=== PATIENT | female | born 1995 | race Caucasian/White ===

== ENCOUNTER → 2016-12-03 | Outpatient (CLI) | payer BC ==
--- NOTE | 2016-12-03 09:29 | DIAGNOSTIC IMAGING REPORT ---
RIGHT SHOULDER ULTRASOUND CLINICAL HISTORY: Right shoulder mass. COMPARISON STUDY: Right shoulder ultrasound July 27, 2014. TECHNIQUE: Sonography of the right shoulder at site of palpable abnormality was performed. FINDINGS: No mass, fluid collection or other sonographic abnormality is identified within the region of the right shoulder by sonography. The 1.4 cm oval-shaped lesion shown on exam of July 27, 2014 is no longer visualized. IMPRESSION: No right shoulder mass identified by sonography. Electronically signed by: Tristan Bray M.D. 12/03/2016 9:28 AM Dictated Date/Time: 12/03/2016 9:25 AM
== END | disposition home or self-care (01) ==
LOC: C.ULTR 09:05
PROVIDERS: ATTEND Internal Medicine
DX: R22.31 Localized swelling, mass and lump, right upper limb (principal)